=== PATIENT | male | born 1980 | race Caucasian/White ===

== ENCOUNTER 2017-07-05 13:57 | Emergency (ER) | payer OTHER ==
[2017-07-05] MEDS ORDERED: BENADRYL 50 MG/ML IV ONE (14:05)
[2017-07-05] MEDS ORDERED: solu-MEDROL 125 MG IV ONE ×2 (14:05→15:41)
[2017-07-05] MEDS ORDERED: Pepcid 20 MG VIAL IV ONE ×2 (14:05→14:12)
[2017-07-05] MEDS ORDERED: solu-MEDROL 125 MG ONE ×2 (14:12→15:43)
[2017-07-05] MEDS ORDERED: BENADRYL 50 MG/ML ONE (14:12)
--- NOTE | 2017-07-05 14:50 | ERPHSYRPT ---
- History of Present Illness Time Seen by Provider: 07/05/17 14:00 Source: patient Exam Limitations: no limitations Patient Subjective Stated Complaint: allergic reaction Triage Nursing Assessment: pt alert and oreinted x3, able to speak full sentences with no difficulties, face, neck and arms noted to be red, patient scratching at arms and legs Physician History: patient presents with allergic reaction after eating shellfish. Patient had shrimp and clams possibly an hour to hour and a half prior to arrival. Patient noted generalized erythematous and pruritic rash. Patient also noticed throat fullness but no difficulty swallowing or breathing. Patient without any previous allergic reaction that he knows of. Patient has been doing well and recent illness or any other exposure to new meds, soaps, detergents or pets. Timing/Duration: today, hour(s) (2), sudden Severity: moderate Modifying Factors: Improves With: other (patient did not take any meds prio to ED) Associated Symptoms: other (throat fullness), No nausea, No vomiting, No shortness of breath, No heartburn, No diaphoresis, No chest pain, No loss of appetite Allergies/Adverse Reactions: No Known Drug Allergies Allergy (Verified 07/05/17 14:04) Home Medications: Loratadine 10 mg [Claritin 10 mg] 10 mg PO DAILY 07/05/17 [History] Omeprazole 20 mg PO DAILY 07/05/17 [History] Hx Tetanus, Diphtheria Vaccination/Date Given: No Hx Influenza Vaccination/Date Given: No Hx Pneumococcal Vaccination/Date Given: No Immunizations Up to Date: No - Review of Systems Constitutional: No Fever, No Chills Eyes: No Symptoms Ears, Nose, & Throat: Throat Swelling Respiratory: No Symptoms, No Cough, No Dyspnea Cardiac: No Chest Pain, No Edema, No Syncope Abdominal/Gastrointestinal: No Abdominal Pain, No Nausea, No Vomiting, No Diarrhea Genitourinary Symptoms: No Dysuria Musculoskeletal: No Back Pain, No Neck Pain Skin: Rash (generalized erythematous rash) Neurological: No Dizziness, No Focal Weakness, No Sensory Changes Psychological: No Symptoms Endocrine: No Symptoms All Other Systems: Reviewed and Negative - Past Medical History Pertinent Past Medical History: No - Past Surgical History Other Surgical History: hand - Social History Smoking Status: Never smoker Exposure to second hand smoke: No Drug Use: none Patient Lives Alone: No - Nursing Vital Signs Nursing Vital Signs: Initial Vital Signs Temperature 98.5 F 07/05/17 14:04 Pulse Rate 120 H 07/05/17 14:04 Respiratory Rate 20 07/05/17 14:04 Blood Pressure 153/97 07/05/17 14:04 O2 Sat by Pulse Oximetry 94 L 07/05/17 14:04 Pain Scale Pain Intensity 2 - Physical Exam General Appearance: no apparent distress, alert Eye Exam: PERRL/EOMI, eyes nml inspection Ears, Nose, Throat Exam: normal ENT inspection, TMs normal, pharynx normal, moist mucous membranes Neck Exam: normal inspection, non-tender, supple, full range of motion Respiratory Exam: normal breath sounds, lungs clear, No respiratory distress Cardiovascular Exam: regular rate/rhythm, normal heart sounds, normal peripheral pulses Gastrointestinal/Abdomen Exam: soft, normal bowel sounds, No tenderness, No mass Back Exam: normal inspection, normal range of motion, No CVA tenderness, No vertebral tenderness Extremity Exam: normal inspection, normal range of motion, pelvis stable Neurologic Exam: alert, oriented x 3, cooperative, normal mood/affect, nml cerebellar function, nml station & gait, sensation nml, No motor deficits Skin Exam: warm, dry, other (patient with generalized erythematous rash on face trunk and extremities), No rash Lymphatic Exam: No adenopathy SpO2: 94 Oxygen Delivery: Room Air - Course Nursing assessment & vital signs reviewed: Yes Ordered Tests: Active Orders 24 hr Category Date Time Status IV Insertion STAT Care 07/05/17 14:23 Active Medication Summary Discontinued Medications Generic Name Dose Route Start Last Admin Trade Name Freq PRN Reason Stop Dose Admin Diphenhydramine HCl 50 mg 07/05/17 14:05 07/05/17 14:22 Benadryl 50 Mg/Ml IV 07/05/17 14:06 50 mg STAT ONE Administration Diphenhydramine HCl Confirm 07/05/17 14:12 Benadryl 50 Mg/Ml Administered 07/05/17 14:13 Dose 50 mg .ROUTE .STK-MED ONE Famotidine 20 mg 07/05/17 14:05 07/05/17 14:22 Pepcid 20 Mg Vial IV 07/05/17 14:06 20 mg STAT ONE Administration Famotidine Confirm 07/05/17 14:12 Pepcid 20 Mg Vial Administered 07/05/17 14:13 Dose 20 mg IV .STK-MED ONE Methylprednisolone Sodium Succinate 125 mg 07/05/17 14:05 07/05/17 14:22 Solu-Medrol 125 Mg IV 07/05/17 14:06 125 mg STAT ONE Administration Methylprednisolone Sodium Succinate Confirm 07/05/17 14:12 Solu-Medrol 125 Mg Administered 07/05/17 14:13 Dose 125 mg .ROUTE .STK-MED ONE Methylprednisolone Sodium Succinate 125 mg 07/05/17 15:41 07/05/17 15:44 Solu-Medrol 125 Mg IV 07/05/17 15:42 125 mg STAT ONE Administration Methylprednisolone Sodium Succinate Confirm 07/05/17 15:43 Solu-Medrol 125 Mg Administered 07/05/17 15:44 Dose 125 mg .ROUTE .STK-MED ONE - Progress Progress: improved Progress Note: 07/05/17 14:52 patient was given IV Pepcid, Benadryl and Solu-Medrol. Counseled pt/family regarding: diagnosis - Departure Time of Disposition: 16:09 Departure Disposition: Home Clinical Impression: Allergic reaction Condition: Stable Critical Care Time: No Referrals: ALICE CORDOVA, [employer] [Primary Care Provider] - Instructions: Hives, Food Allergy Additional Instructions: Rx: Prednisone. Also take Benadryl 25-50 mg every 6-8 hours for next 2-3 days for itchiness. Return for worse rash, throat swelling, short of breath, dizziness or any problems.
[2017-07-05 15:48] VITALS: PULSE 80
[2017-07-05 16:15] VITALS: BP 130/74; O2SAT 98
== END 2017-07-05 16:23 | disposition home or self-care (01) ==
LOC: ED 13:57
DX: T78.1XXA Other adverse food reactions, not elsewhere classified, initial encounter (principal); R21 Rash and other nonspecific skin eruption
CPT/HCPCS: 36000; 96374; 96375; 96376; 99284; J1200; J2930